=== PATIENT | male | born 1985 | race Two or more races ===

== ENCOUNTER 2019-09-26 09:07 | Emergency (ER) | payer SELFPAY ==
[~2019-09-26] VITALS: Ht 172.7 cm; Wt 87.0 kg
[2019-09-26 09:13] VITALS: BP 162/96
[2019-09-26] MEDS ORDERED: BACITRACIN ZINC OINT UDPKT TOP ONE (09:30)
[2019-09-26] MEDS ORDERED: LIDOCAINE HCL/PF 1% 10 MG/ML 5ML VIAL IJ ONE (09:30)
[2019-09-26] MEDS ORDERED: TETANUS, DIPHTHERIA, PERTUSSIS VAC/PF 0.5ML (>7YR OLD) IM ONE (09:30)
[2019-09-26] MEDS ORDERED: HYDROCODONE/ACETAMINOPHEN 5/325MG TABLET PO ONE (10:15)
== END 2019-09-26 18:16 | disposition home or self-care (01) ==
LOC: ER 09:07
DX: S62.660B Nondisplaced fracture of distal phalanx of right index finger, initial encounter for open fracture (principal); W31.2XXA Contact with powered woodworking and forming machines, initial encounter; Y93.89 Activity, other specified; Y92.018 Other place in single-family (private) house as the place of occurrence of the external cause
CPT/HCPCS: 73130; 90715; 99284; J3490

== ENCOUNTER 2022-10-10 11:06 | Emergency (ER) | payer MEDICAID ==
[~2022-10-10] VITALS: Ht 167.6 cm; Wt 127.0 kg
[2022-10-10 11:14] VITALS: BP 173/107
[2022-10-10] MEDS ORDERED: BACI3.5O24 LEFTEYE (12:50)
== END 2022-10-10 13:19 | disposition home or self-care (01) ==
LOC: ER 12:50
DX: H01.004 Unspecified blepharitis left upper eyelid (principal); I10 Essential (primary) hypertension
CPT/HCPCS: 99282